=== PATIENT | male | born 1985 | race American Indian/Alaskan Native ===

== ENCOUNTER 2021-10-15 10:42 | Emergency (ER) | payer OTHER ==
[2021-10-15 11:25] VITALS: BP 141/93
--- NOTE | 2021-10-15 11:50 | Emergency Department Report ---
ED Abdominal Pain HPI - General Chief Complaint: Abdominal Pain Stated Complaint: ABD PAIN X1WK Time Seen by Provider: 10/15/21 11:35 Source: patient Mode of arrival: Ambulatory Limitations: No Limitations - History of Present Illness Initial Comments: 36 y/o male with right upper and lower abdominal pain after radiating to the right flank x1 week. He states that pain is a 4 out of 10 at present. Patient unable to describe pain. He states that his mother told him to come to the ER to have it checked out because he possibly have pancreatitis. Patient states he do not drink any alcohol. Patient is sitting in room on cellular phone . No acute distress noted. No ill appearance noted. He denies any fever ,chills ,chest pain ,n/v at present . Denies any dysuria.Patient state he decrease urine intake to help with pain. MD Complaint: abdominal pain, flank pain Severity scale (0 -10): 4 - Related Data Allergies Allergy/AdvReac Type Severity Reaction Status Date / Time No Known Allergies Allergy Unverified 10/15/21 11:19 ED Review of Systems ROS: Stated complaint: ABD PAIN X1WK Other details as noted in HPI Constitutional: denies: chills, fever Eyes: denies: eye pain, eye discharge, vision change ENT: denies: ear pain, throat pain Respiratory: denies: cough, shortness of breath, wheezing Cardiovascular: denies: chest pain, palpitations Endocrine: no symptoms reported Gastrointestinal: abdominal pain. denies: nausea, diarrhea Genitourinary: denies: urgency, dysuria Musculoskeletal: denies: back pain, joint swelling, arthralgia Skin: denies: rash, lesions Neurological: denies: headache, weakness, paresthesias Psychiatric: denies: anxiety, depression Hematological/Lymphatic: denies: easy bleeding, easy bruising ED Past Medical Hx - Past Medical History Previous Medical History?: Yes Hx Hypertension: Yes (no meds) - Surgical History Past Surgical History?: No ED Physical Exam - General Limitations: No Limitations General appearance: alert, in no apparent distress - Head Head exam: Present: atraumatic, normocephalic - Eye Eye exam: Present: normal appearance - ENT ENT exam: Present: mucous membranes moist - Neck Neck exam: Present: normal inspection, tenderness - Respiratory Respiratory exam: Present: normal lung sounds bilaterally. Absent: respiratory distress - Cardiovascular Cardiovascular Exam: Present: regular rate, normal rhythm. Absent: systolic murmur, diastolic murmur, rubs, gallop - GI/Abdominal GI/Abdominal exam: Present: soft, normal bowel sounds - Rectal Rectal exam: Present: deferred - Extremities Exam Extremities exam: Present: normal inspection - Back Exam Back exam: Present: normal inspection - Neurological Exam Neurological exam: Present: alert, oriented X3 - Psychiatric Psychiatric exam: Present: normal affect, normal mood - Skin Skin exam: Present: warm, dry, intact, normal color. Absent: rash ED Course Vital Signs 10/15/21 11:24 Temperature 98.3 F Pulse Rate 62 Respiratory 20 Rate Blood Pressure 141/93 [Right] O2 Sat by Pulse 98 Oximetry ED Medical Decision Making - Lab Data Result diagrams: 10/15/21 12:08 10/15/21 12:08 - Medical Decision Making 36 y/o male with right upper and lower abdominal pain after radiating to the right flank x1 week. He states that pain is a 4 out of 10 at present. Patient unable to describe pain. He states that his mother told him to come to the ER to have it checked out because he possibly have pancreatitis. Patient states he do not drink any alcohol. Patient is sitting in room on cellular phone . No acute distress noted. No ill appearance noted. He denies any fever ,chills ,c hest pain ,n/v at present . Denies any dysuria.Patient state he decrease urine intake to help with pain. Patient states that pain was better while waiting on Ua to result .No Pain medicine was given in the ED. Patient left prior to discharge instruction given. - Differential Diagnosis generalized abdominal pain, appendicitis, cholecystitis Critical care attestation.: If time is entered above; I have spent that time in minutes in the direct care of this critically ill patient, excluding procedure time. ED Disposition Clinical Impression: History of elopement from health care facility Abdominal pain Qualifiers: Abdominal location: right upper quadrant Qualified Code(s): R10.11 - Right upper quadrant pain Disposition: 07 LEFT AWOL/ELOPED Is pt being admited?: No Does the pt Need Aspirin: No Condition: Undetermined Instructions: Abdominal Pain, Adult, [id number] Additional Instructions: Continue to drink plenty of fluids Follow-up with primary care doctor as needed Return to worsen symptoms May take [id number] Tylenol Motrin as needed for pain Referrals: PRIMARY CARE, [Primary Care Provider] - 3-5 Days ANDREW CHAO MD [Staff Physician] - 3-5 Days Time of Disposition: 14:50
[2021-10-15 12:38] LABS: BUN/Creatinine Ratio 16; Blood Urea Nitrogen 13 mg/dL (9-20); Calcium 9.3 mg/dL (8.4-10.2); Hemolysis Index 5
[2021-10-15 12:41] LABS: Basophils # (Auto) 0.2 K/mm3 (0.0-0.1); Eosinophils # (Auto) 0.3 K/mm3 (0.0-0.4); Eosinophils % (Auto) 4.7 % (0.0-4.3); Hemoglobin 14.3 gm/dl (11.8-15.2); Lymphocytes # (Auto) 1.8 K/mm3 (1.2-5.4); Lymphocytes % (Auto) 32.2 % (13.4-35.0); Mean Corpuscular HGB Conc 32 % (32-34); Mean Corpuscular Volume 85 fl (84-94); Monocytes # (Auto) 0.4 K/mm3 (0.0-0.8); Monocytes % (Auto) 7.7 % (0.0-7.3); Platelet Count 275 K/mm3 (140-440); Red Blood Count 5.31 M/mm3 (3.65-5.03); Red Cell Distribution Width 14.3 % (13.2-15.2)
[2021-10-15 14:23] LABS: Bilirubin,Urine NEG (Negative); Blood,Urine NEG (Negative); Color,Urine Yellow (Yellow); Mucus,Urine FEW /HPF; Protein,Urine <15 mg/dL mg/dL (Negative); RBC,Urine < 1.0 /HPF (0.0-6.0); Urobilinogen,Urine < 2.0 mg/dL (<2.0); WBC,Urine < 1.0 /HPF (0.0-6.0)
== END 2021-10-15 15:14 | disposition left against medical advice (07) ==
LOC: ED 10:42
DX: R10.11 Right upper quadrant pain (principal); R10.31 Right lower quadrant pain; I10 Essential (primary) hypertension; Z79.899 Other long term (current) drug therapy
CPT/HCPCS: 36415; 80048; 81001; 85025; 99283